=== PATIENT | male | born 1995 | race Caucasian/White ===

== ENCOUNTER 2022-01-17 05:36 | Emergency (ER) | payer OTHER ==
[~2022-01-17] VITALS: Ht 175.3 cm; Wt 86.4 kg
[2022-01-17 05:51] VITALS: TEMP 97.9
[2022-01-17 06:00] LABS: COLLECTION METHOD CLEAN CATCH
[2022-01-17 06:12] LABS: MUCOUS Present (NOT PRESENT); SQUAMOUS EPITHELIAL None Seen /hpf (0-10); URINE BACTERIA None Seen /hpf (NONE SEEN); URINE RBC >50 /hpf (0-2)
[2022-01-17 06:13] LABS: PH 6 (5-8); URINE APPEARANCE Clear (CLEAR/HAZY); URINE COLOR Yellow (YELLOW); URINE GLUCOSE Negative (NEGATIVE); URINE KETONE Negative (NEGATIVE); URINE NITRATE Negative (NEGATIVE); URINE PROTEIN(semi-quant) Negative (NEGATIVE); URINE UROBILINOGEN Negative (NEGATIVE)
[2022-01-17 06:14] LABS: URINE BLOOD 2+ (NEGATIVE)
[2022-01-17 06:23] LABS: BASO # 0.1 K/mm3 (0.0-0.2); BASO % 0.7 % (0.0-2.0); EOS # 0.4 K/mm3 (0.0-0.7); GRAN # 4.7 K/mm3 (1.4-6.5); GRAN % 66.8 % (42.2-75.2); HEMATOCRIT 45.2 % (42.0-52.0); HEMOGLOBIN 15.9 g/dl (13.5-18.0); LYMPH # 1.4 K/mm3 (1.2-3.4); LYMPH % 19.3 % (20.0-51.0); MEAN CELL VOLUME 82 fl (80.0-100.0); MEAN CORPUSCULAR HEMOGLOBIN 29 pg (27-31); MEAN CORPUSCULAR HGB CONC 35 g/dl (33.0-37.0); MEAN PLATELET VOLUME 10.7 fl (7.4-10.4); MONO # 0.6 K/mm3 (0.1-0.6); MONO % 8.1 % (1.7-9.3); PLATELET COUNT 250 K/mm3 (130-400)
[2022-01-17 06:40] LABS: ALBUMIN 4.5 gm/dL (3.5-5.0); BILIRUBIN,TOTAL 0.9 mg/dL (0.2-1.2); CALCIUM 10.4 mg/dL (8.4-10.2); CREATININE, serum 0.91 mg/dL (0.72-1.25); TOTAL PROTEIN 7.5 gm/dL (6.2-8.1)
[2022-01-17] MEDS ORDERED: NORCO 325 MG-51 TAB PO (08:26)
[2022-01-17 08:30] VITALS: BP 144/98; PULSE 101
== END 2022-01-17 08:45 | disposition home or self-care (01) ==
LOC: COL.ER 05:36
PROVIDERS: Personal Emergency Response Attendant
DX: N20.1 Calculus of ureter (principal); Z28.310 Unvaccinated for COVID-19
CPT/HCPCS: J2270; J2405; J7030